=== PATIENT | male | born 1990 | race African-American/Black ===

== ENCOUNTER 2020-04-08 10:15 | Emergency (ER) | payer OTHER ==
[~2020-04-08] VITALS: Ht 180.3 cm; Wt 68.0 kg
[2020-04-08 10:32] VITALS: BP 144/88
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
--- NOTE | 2020-04-08 11:35 | Diagnostic Imaging Report ---
EXAM: CT CT Head no Contrast INDICATION: Trauma with head pain. TECHNIQUE: Axial images of the brain were obtained with subsequent sagittal and coronal reformats. All CT scans at this facility are performed using dose modulation techniques as appropriate to a performed exam including the following: automated exposure control with adjustment of the mA and/or kV according to patient size. COMPARISON STUDY: None. RADIATION DOSE: CTDIvol: 53.4 mGy DLP: 1072.2 mGy-cm Dose information generated by the CT scanner is available in PACS. FINDINGS: There is normal symmetry and normal kent-white differentiation. There is no acute large territory cortical infarct, hemorrhage, mass effect or shift. Ventricles and cisterns as well as brainstem and posterior fossa appear unremarkable. The sellar region is normal. Sinuses, mastoid air cells and bony calvarium appear intact. IMPRESSION: NO ACUTE INTRACRANIAL ABNORMALITY.
[2020-04-08] MEDS ORDERED: Lidocaine 1% Plain 30 ml INJ ONE (12:45)
[2020-04-08] MEDS ORDERED: BACITRACIN ZINC TP (13:23)
[2020-04-08] MEDS ORDERED: CEPHALEXIN500 MG ORAL (13:23)
[2020-04-08] MEDS ORDERED: IBUPROFEN600 M1 ORAL (13:23)
[2020-04-08 13:38] VITALS: BP 132/78
--- NOTE | 2020-04-08 13:48 | Diagnostic Imaging Report ---
INDICATION: Hand pain TECHNIQUE: Multiple views of the left hand were obtained COMPARISON: None FINDINGS: There is no acute fracture or dislocation. Joint spaces are maintained. There is deformity of the fifth metacarpal head, which demonstrates palmar angulation, presumably an old healed fracture. No acute soft tissue abnormality. IMPRESSION: No acute fracture or dislocation.
== END 2020-04-08 13:38 | disposition home or self-care (01) ==
LOC: EMR 12:00
DX: S09.90XA Unspecified injury of head, initial encounter (principal); S01.81XA Laceration without foreign body of other part of head, initial encounter; S01.511A Laceration without foreign body of lip, initial encounter; S60.222A Contusion of left hand, initial encounter; S40.011A Contusion of right shoulder, initial encounter; V43.62XA Car passenger injured in collision with other type car in traffic accident, initial encounter; Y92.410 Unspecified street and highway as the place of occurrence of the external cause
CPT/HCPCS: 12013; 70450; 73130; J2001; Z7502; 99284